=== PATIENT | female | born 1980 | race Caucasian/White ===

== ENCOUNTER 2022-04-21 09:34 | Outpatient (CLI) | payer OTHER, SELFPAY ==
--- NOTE | ~2022-04-21 | MM_ITS ---
EXAMINATION: MM screening renan BI w toby HISTORY: Baseline screening mammogram TECHNIQUE: Craniocaudal and mediolateral oblique 3-D tomosynthesis images were obtained and synthetic 2-D images were generated. CAD analysis was submitted and interpreted. COMPARISON: None, baseline BREAST PARENCHYMAL COMPOSITION: There are scattered areas of fibroglandular density. FINDINGS: RIGHT BREAST: Focal asymmetry is present in the posterior third of the far outer breast. LEFT BREAST: No suspicious mass, calcification, or architectural distortion are identified to suggest malignancy. IMPRESSION: 1. Right breast focal asymmetry. 2. Additional mammographic views and possible breast ultrasound are recommended. BI-RADS Category 0: Incomplete: Needs additional imaging evaluation. Reviewed, dictated and finalized at location A. EOLOGY FACULTY MEMBER IMPRESSION: 1. Right breast focal asymmetry. 2. Additional mammographic views and possible breast ultrasound are recommended . BI-RADS Category 0: Incomplete: Needs additional imaging evaluation.
== END 2022-04-21 09:35 | disposition home or self-care (01) ==
LOC: ANHIMG 09:36
PROVIDERS: PCP Emergency Medicine; Visit Provider Emergency Medicine
DX: Z12.31 Encounter for screening mammogram for malignant neoplasm of breast (principal); R92.8 Other abnormal and inconclusive findings on diagnostic imaging of breast
CPT/HCPCS: 77063; 77067

== ENCOUNTER 2022-05-12 14:00 | Outpatient (CLI) | payer OTHER, SELFPAY ==
--- NOTE | ~2022-05-12 | MMUS_ITS ---
EXAMINATION: MM diagnostic renan RT w toby, US breast RT limited HISTORY: Follow-up right breast asymmetry TECHNIQUE: Additional 3-D tomosynthesis images of the right breast were performed and synthetic 2-D i mages were generated. CAD analysis was submitted and interpreted. High resolution Limited right breas t ultrasound was performed. COMPARISON: 04/21/2022 BREAST PARENCHYMAL COMPOSITION: Breast composed of scattered areas of fibroglandular density FINDINGS: MAMMOGRAPHIC FINDINGS: There is persistent asymmetry in the upper outer quadrant of the right breast with nodular appearance on tomographic images. There are 2 punctate calcifications within the soft tissue. ULTRASOUND: Limited right breast ultrasound: At 10:00, 12 cm from the nipple, there is a cluster of microcysts me asuring 9 x 3 x 6 mm, likely corresponding to the area of mammographic concern. No additional masses are seen. IMPRESSION: 1. Probable benign findings of the right breast. 2. Recommend 6 month follow-up diagnostic right mammogram and ultrasound. BI-RADS category 3, probably benign findings. Reviewed, dictated and finalized at location A. REACH OPERATOR IMPRESSION: 1. Probable benign findings of the right breast. 2. Recommend 6 month follow-up diagnostic right mammogram and ultrasound. BI-RADS category 3, probably benign findings.
== END 2022-05-12 14:01 | disposition home or self-care (01) ==
PROVIDERS: PCP Emergency Medicine; Visit Provider Emergency Medicine
DX: R92.8 Other abnormal and inconclusive findings on diagnostic imaging of breast (principal)
CPT/HCPCS: 76642; 77061; 77065; G0279

== ENCOUNTER 2023-03-29 09:02 | Outpatient (CLI) | payer OTHER, SELFPAY ==
--- NOTE | 2023-03-29 11:00 | NEURO_ITS ---
Impression: # Complains of right 4th and 5th finger numbness. # No Carpal Tunnel Syndrome or ulnar neuropathy at this stage. # Normal needle/EMG exam. # Clinical correlation recommended. Nerve Conduction Studies Anti Sensory Summary Table Stim Site NR Peak (ms) P-T Amp (?V) Site1 Site2 Delta-P (ms) Dist (cm) Sai (m/s) Right Median Anti Sensory (2-3nd Digit) Wrist 3.3 78.5 Wrist 2-3nd Digit 3.3 14.0 42 Wrist 3.2 92.1 Wrist 2-3nd Digit 3.3 14.0 42 Right Radial Anti Sensory (Base 1st Digit) Wrist 2.1 33.8 Wrist Base 1st Digit 2.1 0.0 Right Ulnar Anti Sensory (5th Digit) Wrist 2.6 46.7 Wrist 5th Digit 2.6 14.0 54 Motor Summary Table Stim Site NR Onset (ms) O-P Amp (mV) Site1 Site2 Delta-0 (ms) Dist (cm) Sai (m/s) Right Median Motor (Abd Poll Brev) Wrist 3.5 3.8 Elbow Wrist 4.2 27.0 64 Elbow 7.7 3.2 Right Ulnar Motor (Abd Dig Minimi) Wrist 2.1 8.7 A Elbow Wrist 5.1 31.0 61 A Elbow 7.2 7.2 F Wave Studies NR F-Lat (ms) L-R F-Lat (ms) Right Median (Mrkrs) (Abd Poll Brev) 26.14 Right Ulnar (Mrkrs) (Abd Dig Min) 26.20 EMG Side Muscle Nerve Root Ins Act Fibs Amp Dur Recrt Comment Right 1stDorInt Ulnar C8-T1 Nml Nml Nml Nml Nml Right Ext Indicis Radial (Post Int) C7-8 Nml Nml Nml Nml Nml Right Ext Digitorum Radial (Post Int) C7-8 Nml Nml Nml Nml Nml Right BrachioRad Radial C5-6 Nml Nml Nml Nml Nml Right PronatorTeres Median C6-7 Nml Nml Nml Nml Nml Right Abd Poll Brev Median C8-T1 Nml Nml Nml Nml Nml Right ABD Dig Min Ulnar C8-T1 Nml Nml Nml Nml Nml Right Biceps Musculocut C5-6 Nml Nml Nml Nml Nml Right Triceps Radial C6-7-8 Nml Nml Nml Nml Nml MTDD
== END 2023-03-29 09:03 | disposition home or self-care (01) ==
PROVIDERS: PCP Emergency Medicine; Visit Provider Emergency Medicine
DX: G56.21 Lesion of ulnar nerve, right upper limb (principal)
CPT/HCPCS: 95886; 95909

== ENCOUNTER 2023-07-26 13:45 | Outpatient (CLI) | payer OTHER, SELFPAY ==
--- NOTE | ~2023-07-26 | MM_ITS ---
EXAMINATION: MM screening renan BI w toby HISTORY: Screening mammogram TECHNIQUE: Craniocaudal and mediolateral oblique 3-D tomosynthesis images were obtained and synthetic 2-D images were generated. CAD analysis was submitted and interpreted. COMPARISON: 05/12/2022 diagnostic right mammogram and limited right breast ultrasound 04/21/2022 bilateral screening mammogram BREAST PARENCHYMAL COMPOSITION: There are scattered areas of fibroglandular density. FINDINGS: Focal irregular asymmetric opacity is noted in the very posterior upper outer right breast, appearing mildly increased in prominence since 04/21/2022. Diagnostic right mammogram and right breas t ultrasound examination are recommended. Otherwise no suspicious mass, architectural distortion, malignant calcification, skin thickening or r etraction of either breast or other significant new or developing density is noted. IMPRESSION: 1. Focal irregular asymmetry in posterior upper outer right breast 2. Diagnostic right mammogram and right breast ultrasound examination are recommended BI-RADS Category 0: Incomplete: Needs additional imaging evaluation. Reviewed, dictated and finalized at location A. L RESTORER IMPRESSION: 1. Focal irregular asymmetry in posterior upper outer right breast 2. Diagnostic right mammogram and right breast ultrasound examination are recom mended BI-RADS Category 0: Incomplete: Needs additional imaging evaluation.
== END 2023-07-26 13:46 | disposition home or self-care (01) ==
LOC: ANHIMG 13:47
PROVIDERS: PCP Emergency Medicine; Visit Provider Emergency Medicine
DX: Z12.31 Encounter for screening mammogram for malignant neoplasm of breast (principal); R92.8 Other abnormal and inconclusive findings on diagnostic imaging of breast
CPT/HCPCS: 77063; 77067

== ENCOUNTER 2023-08-22 13:30 | Outpatient (CLI) | payer OTHER, SELFPAY ==
--- NOTE | ~2023-08-22 | MMUS_ITS ---
EXAMINATION: MM diagnostic renan RT w toby, US breast RT limited HISTORY: Follow-up right breast asymmetry TECHNIQUE: Additional 3-D tomosynthesis images of the right breast were performed and synthetic 2-D i mages were generated. CAD analysis was submitted and interpreted. High resolution Limited right breas t ultrasound was performed. COMPARISON: Comparison to multiple prior studies sequentially, with oldest reviewed study dated 05/2021. BREAST PARENCHYMAL COMPOSITION: Not dense: There are scattered areas of fibroglandular density. FINDINGS: MAMMOGRAPHIC FINDINGS: Focal asymmetry is stable compared with prior examination. No new masses, calcifications or lead enterprise architect ural distortion in the right breast to suggest malignancy. ULTRASOUND: At 10:00, 11 cm from the nipple in the right breast is a cluster of cysts, likely corresponding to th e area of mammographic asymmetry. No suspicious masses to suggest malignancy. There are also cysts at 9:00, 7 cm from the nipple. IMPRESSION: 1. No evidence for malignancy in the right breast. Benign findings. 2. Routine yearly screening mammogram and regular clinical breast examination are recommended. BI-RADS Category 2: Benign finding(s). Reviewed, dictated and finalized at location A. IMPRESSION: 1. No evidence for malignancy in the right breast. Benign findings. 2. Routine yearly screening mammogram and regular clinical breast examination a re recommended. BI-RADS Category 2: Benign finding(s).
== END 2023-08-22 13:31 | disposition home or self-care (01) ==
PROVIDERS: PCP Emergency Medicine; Visit Provider Emergency Medicine
DX: R92.8 Other abnormal and inconclusive findings on diagnostic imaging of breast (principal)
CPT/HCPCS: 76642; 77061; 77065; G0279

== ENCOUNTER 2024-10-08 07:56 | Outpatient (CLI) | payer OTHER, SELFPAY ==
--- NOTE | ~2024-10-08 | MM_ITS ---
EXAMINATION: MM screening renan BI w toby HISTORY: Screening TECHNIQUE: Craniocaudal and mediolateral oblique 3-D tomosynthesis images were obtained and synthetic 2-D images were generated. CAD analysis was submitted and interpreted. COMPARISON: Comparison to multiple prior studies sequentially, with oldest reviewed study dated 05/2021. BREAST PARENCHYMAL COMPOSITION: Not dense: There are scattered areas of fibroglandular density. FINDINGS: There is no evidence of suspicious mass, calcification, or architectural distortion to sugg est malignancy in either breast. There has been no suspicious interval change. IMPRESSION: 1. No mammographic evidence of malignancy. 2. Recommend routine screening mammography in one year. BI-RADS Category 1: Negative Reviewed, dictated and finalized at location B.
--- OUTSIDE RECORDS SUMMARY | 2024-10-08 08:02 | XMS_ITS | Referral Summary ---
Author Organization [facility] Address [address] [place] [address] Care Team Providers Care Patients Transporter Name Role Phone Augustine Stewart MD Primary Care Provider [phone] Allergies No known active allergies Medications eletriptan (RELPAX) 40 mg tablet Take 1 tablet (40 mg total) by mouth 2 (two) times a day as needed 02/03/20 22 Active ketoconazole (NIZORAL) 2 % cream Apply topically daily Active levonorgestreL (MIRENA) IUD 1 Intra Uterine Device by intrauterine route once Active levothyroxine (SYNTHROID) 100 mcg tablet Take 1 tablet (100 mcg total) by mouth daily 02/03/20 22 Active ondansetron ODT (ZOFRAN-ODT) 4 mg disintegrating tablet 10/05/19 23 Active phentermine (ADIPEX-P) 37.5 mg tablet 12/29/19 23 Active rimegepant (NURTEC ODT) tablet,disintegrat ing Take 1 tablet (75 mg total) by mouth as needed 05/19/20 21 Active Aimovig Autoinjector 70 mg/mL auto-injector subcutaneous injection Inject 1 mL (70 mg total) under the skin once Active meloxicam (MOBIC) 7.5 mg tabletIndications: Acute left ankle pain Take 1 tablet (7.5 mg total) by mouth daily for 14 days 14 tablet 03/18/20 24 Active Active Problems Problem Noted Date Diagnosed Date Chronic migraine without aura 09/13/2022 Migraine without aura and wi thout status migrainosus, not intractable 09/13/2022 Social History Tobacco Use Types Packs/Day Years Used Date Smoking Tobacco: Former Cigarettes Personal Safety Answer Date Recorded Getting School Help Needed Not on file 06/21 Comments Unknown Sex and Gender Information Value Date Recorded Sex Assigned at Not on file 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 Gender Identity Not on file Sexual Orientation Not on file Last Filed Vital Signs Vital Sign Reading Time Taken Comments Blood Pressure 125/85 03/18/2024 2:06 PM CDT Pulse 69 03/18/2024 2:06 PM CDT Temperature 36.3 C (97.4 F) 03/18/2024 2:06 PM CDT Respiratory Rate 18 03/18/2024 2:06 PM CDT Oxygen Saturation 97% 03/18/2024 2:06 PM CDT Inhaled Oxygen Concentration - - Weight 96.9 kg (213 lb 11.2 oz) 03/18/2024 2:06 PM CDT Height 170.2 cm (5' 7.01 ) 03/18/2024 2:06 PM CD T Body Mass Index 33.46 03/18/2024 2:06 PM CDT Plan of Treatment Not on file Insurance CHOICE PLUS [facility] H[facility]/PPO Address: [id number] [place] [address] [facility] CHOICE PLUS [facility] HMO/PPO [place]: [place] [address] Care Teams Patients Transporter Relationship Specialty Start Date End Date Augustine Stewart MD [address] [place] [address] [address] PCP - General Family Medicine 04/05/23
--- OUTSIDE RECORDS SUMMARY | 2024-10-08 08:02 | XMS_ITS | Encounter Summary ---
Author Organization [facility] Address [address] [place] [address] Care Team Providers Care Skin Lap Bonder Name Role Phone Augustine Stewart MD Primary Care Provider [phone] Radha Elliott NP Primary Care Provider [phone] Encounter Details Date Type Department Care Team (Late Contact Info) Description 01/12/2024 Therapy Plan [address], [address] [place] [address] Chris Church MD [address] [place] [id number] Social History Tobacco Use Types Packs/Day Years Used Date Smoking Tobacco: Former Cigarettes Q uit: 2010 Smokeless Tobacco: Never Alcohol Use Standard Drinks/Week Comments Not Currently 0 (1 standard drink = 0.6 oz pur e alcohol) PHQ-2 Answer Date Recorded Patient Health Questionnaire-2 Score 0 04/24/2023 Comments Unknown Sex and Gender Information Value Date Recorded Sex Assigned at Not on file Legal Sex Female 3:33 PM CDT Gender Identity Not on file Sexual Orientation Not on file documented as of this encounter Plan of Treatment Upcoming Encounters Date Type Department Care Team (Late Contact Info) Description 01/13/2025 10:00 AM CDT Office Visit [address], [address] [place] [address] Chris Church MD [address] [place] [address] documented as of this encounter Visit Diagnoses Not on filedocumented in this encounter Care Teams Skin Lap Bonder Relationship Specialty Start Date End Date Augustine Stewart MD [address] [place] [address] PCP - General EMERGENCY MEDICINE 01/01/24 08/11/24 Radha Elliott NP [address] [place] [address] PCP - General 08/12/24 documented as of this encounter
--- OUTSIDE RECORDS SUMMARY | 2024-10-08 08:02 | XMS_ITS | Clinical Summary ---
Author Organization [facility] Address [address] [place] [address] Care Team Providers Care Log Loader Helper Name Role Phone Augustine Stewart MD Primary Care Provider [phone] Allergies No known active allergies Medications eletriptan [...] wi thout status migrainosus, not intractable 09/13/2022 Surgical History Surgery Date Site/Laterality Comments LASIK SECTION THYROIDECTOMY, PARTIAL Medical History Medical History Date Comments Thyroid disease Migraines Family History Medical History Relation Name Comments Kidney disease Brother Mental illness Brother Arthritis Mother Cancer Mother Hypertension Mother Mental illness Mother Scoliosis Mother Relation Name Status Comments Brother Mother Social History Tobacco Use Types Packs/Day Years Used Date Smoking Tobacco: Former Cigarettes Personal Safety Answer Date Recorded Getting School Help Needed Not on file 06/21 Comments Unknown Sex and Gender Information Value Date Recorded Sex Assigned at Not on file 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 Gender Identity Not on file Sexual Orientation Not on file Obstetrics History Last Filed Vital Signs Vital Sign Reading [...] 03/18/2024 2:06 PM CDT Plan of Treatment Health Maintenance Due Date Last Done Comments Breast Cancer Screening-Mammogram 1980 Cervical Cancer Screening 1980 Depression Screening 1980 Hepatitis C Screening 1980 DTaP/Tdap/Td Vaccine (1 - Tdap) 07/31/1991 Varicella Vaccines (1 of 2 - 13+ 2-dose series) 1993 Hepatitis B Screening 1998 Regular Well Visit/Exam 18-64 1998 Covid-19 Vaccine (2 - 2023-2 5 season) 2024 07/23/2022 Influenza Vaccine Completed 04/30/2024, 07/23/2022 HPV Vaccines Aged Out No longer eligi ble based on patient's age to complete this topic Pneumococcal vaccine <65 Aged Out No longer eligible based on patient's age to complete this topic Insurance [facility] [employer] Care Teams Log Loader Helper Relationship Specialty Start Date End Date Augustine Stewart MD [facility] [facility] [place] [address] PCP - General Family Medicine 04/05/23
--- OUTSIDE RECORDS SUMMARY | 2024-10-08 08:02 | XMS_ITS | Clinical Summary ---
Author Organization [facility] Address [address] [place] [address] Care Team Providers Care Licensed Clinical Psychologist Name Role Phone Radha Elliott NP Primary Care Provider [phone] Allergies Active Allergy Reactions Criticality Noted Date Comments Seasonal Runny Nose 02/08/2022 Medications levothyroxine (SYNTHROID) 100 MCG tablet Take 1 tablet (100 mcg total) by mouth daily. 022 Active levonorgestrel (MIRENA) 20 MCG/DAY IUD 1 Intra Uterine Device by Intrauterine route once. Active eletriptan (RELPAX) 40 MG tabletIndications :Migraine without aura, not intractable, without status migrainosus Take 1 tablet (40 mg total) by mouth 2 (two) times daily as needed. may repeat in 2 hours if necessary 16 tablet 11 023 Active rimegepant (NURTEC) 75 MG disintegrating tabletIndications :Migraine without aura, not intractable, without status migrainosus Take 1 tablet (75 mg total) by mouth daily as needed for Migraine. Max of 1 tablet (75 mg) in 24 hours. 16 tablet 11 025 Active eletriptan (RELPAX) 40 MG tabletIndications :Migraine without aura, not intractable, without status migrainosus Take 1 tablet (40 mg total) by mouth as needed. may repeat in 2 hours if necessary 8 tablet 11 025 Active erenumab-aooe (AIMOVIG) 70 mg/mL injection (autoinjector)Ind ications:Chronic migraine w/o aura w/o status migrainosus, not intractable INJECT 1 ML (70 MG TOTAL) INTO THE SKIN EVERY 30 DAYS 1 Pen 5 025 Active erenumab-aooe (AIMOVIG) 70 mg/mL injection (autoinjector)Ind ications:Chronic migraine w/o aura w/o status migrainosus, not intractable Inject 1 mL (70 mg total) into the skin every 30 (thirty) days. 1 pen. 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 Encounters Date Type Department Care Team Description 08/19/2024 Telephone [facility] - [address], [address] [place] [phone] Chris Church MD Results 08/15/2024 10:31 AM CDT - 08/15/2024 11:59 PM CDT Hospital Encounter [facility] [address] [place] [address] Chris Church MD Discharge Disposition: Home or Self Care (Routine Discharge) 08/15/2024 Travel 08/13/2024 7:40 AM CDT Office Visit [facility] - [address], [address] [place] [address] Chris Church MD Follow Up (Migraine days down to 1 or 2 a month) 08/13/2024 Travel 08/01/[address], [address] [place] [address] Chris Church MD Medication Request from Last 3 Months Family History Medical History Relation Comments Alcohol Abuse Maternal Grandfather Stroke Maternal Grandmother Vision loss Maternal Grandmother Arthritis Mother Cancer Mother Ovarian Depression Mother Hyperlipidemia Mother Hypertension Mother Diabetes Paternal Aunt 1 Hyperlipidemia Paternal Aunt 2 Diabetes Paternal Uncle Relation Status Comments Maternal Grandfather Maternal Grandmother Mother Paternal Aunt 1 Paternal Aunt 2 Paternal Uncle Social History Tobacco Use Types Packs/Day Years Used Date Smoking Tobacco: Former Cigarettes Q uit: 2010 Smokeless Tobacco: Never Tobacco Cessation:Counseling Given: No Alcohol Use Standard Drinks/Week Comments Not Currently 0 (1 standard drink = 0.6 oz pur e alcohol) PHQ-2 Answer Date Recorded Patient Health Questionnaire-2 Score 0 08/13/2024 Comments Unknown Sex and Gender Information Value Date Recorded Sex Assigned at Not on file Legal Sex Female 3:33 PM CDT Gender Identity Not on file Sexual Orientation Not on file Last Filed Vital Signs Vital Sign Reading Time Taken Comments Blood Pressure 129/80 08/13/2024 7:54 AM CDT Pulse 74 08/13/2024 7:54 AM CDT Temperature 36.3 C (97.4 F) 08/13/2024 7:54 AM CDT Respiratory Rate 16 08/13/2024 7:54 AM CDT Oxygen Saturation 79% 08/13/2024 7:54 AM CDT Inhaled Oxygen Concentration - - Weight 104.3 kg (230 lb) 08/13/2024 7:54 AM CDT Height 170.2 cm (5' 7 ) 08/13/2024 7:54 AM CDT Body Mass Index 36.02 08/13/2024 7:54 AM CDT Plan of Treatment Upcoming Encounters Date Type Department Care Team (Late st Contact Info) Description 01/13/2025 10:00 AM CDT Office Visit [facility] [address] [facility], [address] [place] [id number] Chris Church MD [address] [place] [address] Health Maintenance Due Date Last Done Comments Cervical Cancer Screening Pa p Smear (Age 30 to 64) Every 3 Years 1980 Annual Physical 07/31/1983 Hepatitis C 1998 Hepatitis B Vaccines (1 of 3 - 19+ 3-dose series) 07/31/1999 Cervical Cancer Screening Pa p with HPV Testing (Age 30 to 64) Every 5 Years 2010 Cervical Cancer Screening wi th HPV 2010 Mammogram Screening 2020 COVID-19 Vaccine (4 - 2023-2 5 season) 2024 07/23/2022, 09/11/2020, 08/21/2020 DTaP, Tdap and Td Vaccines ( 2 - Td or Tdap) 09/23/2026 09/23/2016 PHQ-2 (Physician [place]) Completed 08/13/2024 HPV Vaccines Aged Out No longer eligi ble based on patient's age to complete this topic Meningococcal B Vaccine Aged Out No l onger eligible based on patient's age to complete this topic Meningococcal Vaccine Aged Out No mychal dudley eligible based on patient's age to complete this topic Pneumococcal Vaccine: Pediatrics (0 to 5 Years) and At-Risk Patients (6 to 49 Years) Aged Out No longer eligible b ased on patient's age to complete this topic RSV Immunizations Under 20 Months Aged Out No longer eligible b ased on patient's age to complete this topic Procedures Procedure Name Priority Date/Time Associated Diagnosis Comments MRI BRAIN O CON Routine 08/15/2024 11: 17 AM CDT Meningioma ([facility]) from Last 3 Months Results * MRI BRAIN WWO CON (08/15/2024 11:17 AM CDT) Anatomical Region Laterality Modality Head Magnetic Resonan ce 08/15/2024 5:44 PM CDT Impressions 08/15/2024 7:15 PM CDT IMPRESSION: 1. Normal appearance of the brain. 2. Redemonstrated right parafalcine calcification, less likely a meningioma, unchanged when compared with the prior MRI from 03/31/2023. Referred By: CHRIS CHURCH Interpreted By: Farhat Rebolledo MD, 08/15/2024 5:44 PM Narrative 08/15/2024 7:15 PM CDT [address] [address] EXAMINATION: MRI BRAIN [facility], 08/15/2024 5:44 PM TECHNIQUE: Multiplanar multisequence magnetic resonance images of the brain were obtained before and after the administration of 20 mL of MultiHance injected through the IV, without evidence of adverse reaction. HISTORY: Chronic headaches, past medical history of meningioma. COMPARISON: MRI brain 03/31/2023 FINDINGS: There is no restricted diffusion to suggest an acute infarction. There is no hemorrhagic focus of susceptibility. There is a focal area of susceptibility along the right parafalcine region without corresponding enhancement that may represent a dural calcification rather than a meningioma. No abnormally enhancing intracranial parenchymal. The sella, callosal, pineal, and craniovertebral junction regions appear within normal limits. There is no extra-axial collection. The ventricles are normal in size. The basal cisterns appear normal. The proximal intracranial arterial flow voids have a normal appearance. Orbital contents appear normal. Paranasal sinuses and mastoid air cells are well-aerated. Procedure Note Farhat Rebolledo MD - 08/15/[address] [address] EXAMINATION: MRI BRAIN [facility], 08/15/2024 5:44 PM TECHNIQUE: Multiplanar multisequence magnetic resonance images of thebrain were obtained before and after the administration of 20 mL ofMultiHance injected through the IV, without evidence of adversereaction. HISTORY: Chronic headaches, past medical history of meningioma. COMPARISON: MRI brain 03/31/2023 FINDINGS: There is no restricted diffusion to suggest an acute infarction.There is no hemorrhagic focus of susceptibility. There is a focal areaof susceptibility along the right parafalcine region without correspondingenhancement that may represent a dural calcification rather than ameningioma. No abnormally enhancing intracranial parenchymal. The sella,callosal, pineal, and craniovertebral junction regions appear withinnormal limits. There is no extra-axial collection. The ventricles are normal in size.The basal cisterns appear normal. The proximal intracranial arterial flowvoids have a normal appearance. Orbital contents appear normal.Paranasal sinuses and mastoid air cells are well-aerated. IMPRESSION: 1. Normal appearance of the brain. 2. Redemonstrated right parafalcine calcification, less likely ameningioma, unchanged when compared with the prior MRI from 03/31/2023. Referred By: CHRIS CHURCH Interpreted By: Farhat Rebolledo MD, 08/15/2024 5:44 PM us Chris Church MD MRI Final Res ult from Last 3 Months Insurance [place] [address] Care Teams Licensed Clinical Psychologist Relationship Specialty Start Date End Date Radha Elliott NP [address] [place] [address] PCP - General 08/12/24
--- OUTSIDE RECORDS SUMMARY | 2024-10-08 08:02 | XMS_ITS | Encounter Summary ---
Author Organization [facility] Address [address] [place] [address] Care Team Providers Care Cart Pusher Name Role Phone Chris Church MD Primary Care Provider [phone] Augustine Stewart MD Primary Care Provider [phone] Radha Elliott NP Primary Care Provider [phone] Encounter Details Date Type Department Care Team (Latest Contact Info) Description 12/01/2022 MyChart Message Enc [address], [address] [place] [phone] Chris Church MD [address] [place] [address] [facility] Preauthorization info Social History Tobacco Use Types Packs/Day Years Used Date Smoking Tobacco: Former Cigarettes Smokeless Tobacco: Never PHQ-2 Answer Date Recorded Patient Health Questionnaire-2 Score 0 10/05/2022 Comments Unknown Sex and Gender Information Value Date Recorded Sex Assigned at Not on file Legal Sex Female 3:33 PM CDT Gender Identity Not on file Sexual Orientation Not on file documented as of this encounter Plan of Treatment Upcoming Encounters Date Type Department Care Team (Late st Contact Info) Description 01/13/2025 10:00 AM CDT Office Visit [address], [address] [place] [address] Chris Church MD [address] [place] [address] documented as of this encounter Visit Diagnoses Not on filedocumented in this encounter Care Teams Cart Pusher Relationship Specialty Start Date End Date Chris Church MD [address] [place] [address] PCP - General NEUROMUSCULOSKELETAL MEDICINE 02/08/22 12/31/23 Augustine Stewart MD [address] [place] [address] PCP - General EMERGENCY MEDICINE 01/01/24 08/11/24 Radha Elliott NP [address] [place] [address] PCP - General 08/12/24 documented as of this encounter
== END 2024-10-08 07:57 | disposition home or self-care (01) ==
LOC: ANHIMG 07:57
PROVIDERS: PCP Family Medicine; Visit Provider Nurse Practitioner
DX: Z12.31 Encounter for screening mammogram for malignant neoplasm of breast (principal)
CPT/HCPCS: 77063; 77067

== ENCOUNTER 2024-12-26 03:11 | Day surgery (SDC) | payer OTHER, SELFPAY ==
[2024-12-11 11:24] VITALS: BMI 34.4
--- OUTSIDE RECORDS SUMMARY | 2024-12-26 03:13 | XMS_ITS | Clinical Summary ---
Author Organization [facility] Address [address] [place] [address] Care Team Providers Care Airplane Rigger Name Role Phone Radha Elliott NP Primary Care Provider [phone] Allergies Active Allergy Reactions Criticality Noted Date Comments Seasonal Runny Nose 02/08/2022 Medications levothyroxine (SYNTHROID) 100 MCG tablet Take 1 tablet (100 mcg total) by mouth daily. 02/03/20 22 Active levonorgestrel (MIRENA) 20 MCG/DAY IUD 1 Intra Uterine Device by Intrauterine route once. Active eletriptan (RELPAX) 40 MG tabletIndications: Migraine without aura, not intractable, without status migrainosus Take 1 tablet (40 mg total) by mouth 2 (two) times daily as needed. may repeat in 2 hours if necessary 16 tablet 11 04/24/20 23 Active rimegepant (NURTEC) 75 MG disintegrating tabletIndications: Migraine without aura, not intractable, without status migrainosus Take 1 tablet (75 mg total) by mouth daily as needed for Migraine. Max of 1 tablet (75 mg) in 24 hours. 16 tablet 11 08/03/19 25 Active eletriptan (RELPAX) 40 MG tabletIndications: Migraine without aura, not intractable, without status migrainosus Take 1 tablet (40 mg total) by mouth as needed. may repeat in 2 hours if necessary 8 tablet 11 08/14/19 25 Active erenumab-aooe (AIMOVIG) 70 mg/mL injection (autoinjector)Silvia cations:Chronic migraine w/o aura w/o status migrainosus, not intractable INJECT 1 ML (70 MG TOTAL) INTO THE SKIN EVERY 30 DAYS 1 Pen 5 09/28/19 Active Active Problems Problem Noted Date Diagnosed Date Migraine without aura and wi thout status migrainosus, not intractable 09/13/2022 Chronic migraine without aura 09/13/2022 Mixed hyperlipidemia 04/07/2019 Migraine aura occurring with and without headach e 05/22/2005 Visual snow syndrome 05/22/1998 Family History Medical History Relation Comments Alcohol [...] 7:54 AM CDT Height 170.2 cm (5' 7) 08/13/2024 7:54 AM CDT Body Mass Index 36.02 08/13/2024 7:54 AM CDT Plan of Treatment Upcoming Encounters Date Type Department Care Team (Late st Contact Info) Description 04/29/2025 3:00 PM SPORTS APPAREL INTERNSHIP Office Visit [facility] - [address], [address] [place] [address] Chris Church MD [address] [place] [address] Health Maintenance Due Date Last Done Comments Cervical Cancer Screening Pa p Smear (Age 30 to 64) Every 3 Years 1980 Annual Physical 07/31/1983 Hepatitis C 1998 Hepatitis B Vaccines (1 of 3 - 19+ 3-dose series) 07/31/1999 HPV Vaccines (1 - 3-dose SCD M series) 07/31/2007 Cervical Cancer Screening Pa p with HPV Testing (Age 30 to 64) Every 5 Years 2010 Cervical Cancer Screening wi th HPV 2010 Mammogram Screening 2020 COVID-19 Vaccine (4 - 2023-2 5 season) 2024 07/23/2022, 09/11/2020, 08/21/2020 DTaP, Tdap and Td Vaccines ( 2 - Td or Tdap) 09/23/2026 09/23/2016 PHQ-2 (Physician [place]) Completed 08/13/2024 Meningococcal B Vaccine Aged Out No l [...] patient's age to complete this topic Insurance [facility] Care Teams Airplane Rigger Relationship Specialty Start Date End Date Radha Elliott NP [address] [place] [address] PCP - General 08/12/24
--- OUTSIDE RECORDS SUMMARY | 2024-12-26 03:13 | XMS_ITS | Encounter Summary ---
Author Organization [facility] Address [address] [place] [address] Care Team Providers Care Employment Interviewer Name Role Phone Augustine Stewart MD Primary Care Provider [phone] Radha Elliott NP Primary Care Provider [phone] Encounter Details Date Type Department Care Team (Late Contact Info) Description 01/12/2024 Therapy Plan [address], [address] [place] [address] Chris Church MD [address] [place] [address] Social History Tobacco Use Types Packs/Day Years [...] Department Care Team (Late Contact Info) Description 04/29/2025 3: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
--- OUTSIDE RECORDS SUMMARY | 2024-12-26 03:13 | XMS_ITS | Encounter Summary ---
Author Organization [facility] Address [address] [place] [address] Care Team Providers Care Digital Account Coordinator Name Role Phone Chris Church MD Primary Care Provider [phone] Augustine Stewart MD Primary Care Provider [phone] Radha Elliott NP Primary Care Provider [phone] Encounter Details Date Type Department Care Team (Latest Contact Info) Description 12/01/2022 MyChart Message Enc [facility] - [address], [address] [place] [phone] Chris Church MD [address] [place] [address] [facility] Preauthorization info Social History Tobacco Use Types [...] st Contact Info) Description 04/29/2025 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 [address], [address] [place] [address] Chris Church MD [address] [place] [address] documented as of this encounter Visit Diagnoses Not on filedocumented in this encounter Care Teams Digital Account Coordinator Relationship Specialty Start Date End Date Chris Church MD [address] [place] [address] PCP - General NEUROMUSCULOSKELETAL MEDICINE 02/08/22 12/31/23 Augustine Stewart MD [address] [place] [address] PCP - General EMERGENCY MEDICINE 01/01/24 08/11/24 Radha Elliott NP [address] [place] [address] PCP - General 08/12/24 documented as of this encounter
--- OUTSIDE RECORDS SUMMARY | 2024-12-26 03:13 | XMS_ITS | Clinical Summary ---
Author Organization [facility] Address [address] [place] [address] Care Team Providers Care Marine Structural Designer Name Role Phone Augustine Stewart MD Primary Care Provider [phone] Allergies No known active allergies Medications eletriptan [...] on file Legal Sex Female 2:38 PM VP HOME HEALTH Gender Identity Not on file Sexual Orientation [...] 2:06 PM CDT Height 170.2 cm (5' 7.01) 03/18/2024 2:06 PM CD T Body Mass Index 33.46 03/18/2024 2:06 PM CDT Plan of Treatment Health Maintenance Due Date Last Done Comments Breast Cancer Screening-Mammogram 1980 Cervical Cancer Screening 1980 Depression Screening 1980 Hepatitis C Screening 1980 DTaP/Tdap/Td Vaccine (1 - Tdap) 07/31/1991 Varicella Vaccines (1 of 2 - 13+ 2-dose series) 1993 Hepatitis B Screening 1998 Regular Well Visit/Exam 18-64 1998 HPV Vaccines (1 - 3-dose SCD M series) 07/31/2007 Covid-19 Vaccine (2 - 2023-2 5 season) 2024 07/23/2022 Influenza Vaccine (#1) 2025 , 07/23/2022 Pneumococcal vaccine <65 Aged Out No longer eligible based on patient's age to complete this topic Insurance [facility] PL[facility] Care Teams Marine Structural Designer Relationship Specialty Start Date End Date Augustine Stewart MD [address] [place] [address] [place] [address] PCP - General Family Medicine 04/05/23
[2024-12-26 10:18] VITALS: BP 125/74; PULSE 66; RESP 18; TEMP 36.4; O2SAT 99
--- NOTE | 2024-12-26 10:23 | P.PNAN_ITS ---
Anes - Initial Pre Proc Eval Procedure: Operation Date: 12/26/24 11:00 Proposed Procedures p Screening Colonoscopy - Jose Alejandro Del Valle MD Date/Time: 12/26/24 10:23 Surgeon: Jose Alejandro Del Valle MD Pre Op Diagnosis: Screening Patient Data Age: 44 Gender: F Height: 1.7 m Weight: 101.3 kg Last Vital Signs Temp 36.4 C 12/26/24 10:18 Pulse 66 12/26/24 10:18 Resp 18 12/26/24 10:18 BP 125/74 12/26/24 10:18 Pulse Ox 99 12/26/24 10:18 O2 Del Method Room Air 12/26/24 10:18 Allergies Allergy/AdvReac Type Severity Reaction Status Date / Time No Known Allergies Allergy Verified 12/26/24 10:15 Home Medications ?Medication ?Instructions ?Recorded ?Confirmed ?Type levonorgestrel (Mirena) 1 device intrauterine ONCE 02/11/22 12/11/24 History rimegepant 75 mg disintegrating 75 mg PO ONCE PRN migraine headache 02/11/22 12/11/24 History tablet (Nurtec ODT) erenumab-aooe 70 mg/mL 70 mg subcut MONTHLY 04/29/24 12/26/24 History subcutaneous auto-injector (Aimovig Autoinjector) eletriptan 40 mg tablet 40 mg PO ONCE 09/10/24 12/26/24 History levothyroxine 100 mcg tablet 100 mcg PO DAILY 09/10/24 12/26/24 History multivitamin 1 tablet PO DAILY 09/10/24 12/26/24 History Patient hx anesthesia problems: none Family hx anesthesia problems: none Results Review: All pre-operative results and documents have been reviewed as part of the pre- operative evaluation. [facility] Family History Family History Mother Family history of ovarian cancer Family history of thyroid disorder Other No problems noted. Other Alcoholism in family Family history of depression Family history of diabetes mellitus Family history of hypertension Family history of stroke Social History Social History Smoking packs per day: 1 Smoking cigarettes per day: 20.0 Years smoked: 10 Smoking pack-years: 10.00 Smoking status: Former smoker Tobacco type: cigarettes Smoking end date: 05/22/09 Alcohol intake: never Alcohol use details: RARELY Substance use: never Substance use type: does not use Lack of Transportation: No Lack of Food: Never True Current Housing: I Have Housing Concerned About Future Housing: No Difficulty Paying Gas/Electric Bills: No Difficulty Paying for Meds: No Currently Unemployed: No Education: Master's Degree or Higher Difficulty w/ Childcare or Family Care: No Living arrangements: alone Occupation/Education: occupation Additional occupation/education comments: [employer] Gender identity (if verbalized by the patient): Female Spiritual care concerns: No Agree to blood products: Yes Anes - Eval Final PreProcedure Day of Procedure 12/26/24 10:23 Patient weight: obese Heart: regular rate and rhythm Lungs: clear to auscultation Airway: Mallampati scale class II Neurological: alert and oriented Last oral intake: >/= 8 hours ASA classification: III Emergent: no Anesthetic plan: proceed Anesthesia type and monitoring: general GIVS and standard monitoring Results Review: All pre-operative results and documents have been reviewed as part of the pre- operative evaluation. Informed Consent: The patient's anesthetic plan and its attendant risks and benefits were discussed with the patient/family/POA. Questions were solicited and answers provided to the satisfaction of the patient/family/POA.
[2024-12-26 10:24] LABS: BEDSIDEPREGUCG Negative (Negative)
[2024-12-26] MEDS: LACTATED RINGERS 1,000 ML 150 ML IV CONT (10:26)
--- NOTE | 2024-12-26 11:03 | P.HP_ITS ---
H&P: HPI History of Present Illness Date/Time: 12/26/24 11:03 Chief Complaint: Family history of colon polyps Narrative: This patient has family history of colorectal polyps in her mother. She never had a colonoscopy. Review of Systems Review of Systems: All systems reviewed & are unremarkable except as noted in HPI and below PMFSH Family History Family History Mother Family history of ovarian cancer Family history of thyroid disorder Other No problems noted. Other Alcoholism in family Family history of depression Family history of diabetes mellitus Family history of hypertension Family history of stroke Social History Social History Smoking packs per day: 1 Smoking cigarettes per day: 20.0 Years smoked: 10 Smoking pack-years: 10.00 Smoking status: Former smoker Tobacco type: cigarettes Smoking end date: 05/22/09 Alcohol intake: never Alcohol use details: RARELY Substance use: never Substance use type: does not use Lack of Transportation: No Lack of Food: Never True Current Housing: I Have Housing Concerned About Future Housing: No Difficulty Paying Gas/Electric Bills: No Difficulty Paying for Meds: No Currently Unemployed: No Education: Master's Degree or Higher Difficulty w/ Childcare or Family Care: No Living arrangements: alone Occupation/Education: occupation 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 Gender identity (if verbalized by the patient): Female Spiritual care concerns: No Agree to blood products: Yes Meds Home Medications and Allergies Home Medications ?Medication ?Instructions ?Recorded ?Confirmed ?Type levonorgestrel (Mirena) 1 device intrauterine ONCE 02/11/22 12/11/24 History rimegepant 75 mg disintegrating 75 mg PO ONCE PRN migraine headache 02/11/22 12/11/24 History tablet (Nurtec ODT) erenumab-aooe 70 mg/mL 70 mg subcut MONTHLY 04/29/24 12/26/24 History subcutaneous auto-injector (Aimovig Autoinjector) eletriptan 40 mg tablet 40 mg PO ONCE 09/10/24 12/26/24 History levothyroxine 100 mcg tablet 100 mcg PO DAILY 09/10/24 12/26/24 History multivitamin 1 tablet PO DAILY 09/10/24 12/26/24 History Allergies Allergy/AdvReac Type Severity Reaction Status Date / Time No Known Allergies Allergy Verified 12/26/24 10:15 Vital Signs Vital Signs - 24 hr 12/26/24 10:18 Temperature 97.6 F Pulse Rate 66 Respiratory Rate 18 Blood Pressure 125/74 Pulse Oximetry 99 Oxygen Delivery Room Air Exam Const: General: cooperative and healthy appearing Resp: Effort & Inspection: normal respiratory effort and able to speak in c omplete sentences Auscultation: clear to auscultation bilaterally Cardio: Rate: regular rate Rhythm: regular rhythm GI: Inspection: normal to inspection GI Palp: No No hepatosplenomegaly present Auscultation: normal bowel sounds Rectal Exam: deferred Skin: General skin exam: normal color Psych: Appearance: grossly normal Mental Status: mental status grossly normal Assessment and Plan Assessment and plan (1) Screening for colon cancer: Code(s): Z12.11 - Encounter for screening for malignant neoplasm of colon Status: Acute Assessment and Plan: The patient is deemed a good candidate for the procedure. Consent signed. Wi ll proceed.
--- NOTE | 2024-12-26 11:25 | S_PTH ---
PATIENT: Andreia Fontenot LOC: [facility]#:[id number] AGE/SX: 44/F ROOM: RE12/26/[address]: Jose Alejandro Del Valle MD : 1980 BED: DIS: 12/26/2024 SPEC #: [id number] RECD: 12/26/24 12:09 STATUS: MAG REQ #: [id number] KATHLEEN: 12/26/24 11:[address]: Jose Alejandro Del Valle DEPT: [facility] Surgical RECD BY: Desiree Alcala ENTERED: 12/26/24 12:09 SP TYPE: Surgical OTHR DR: Elizabeth Paniagua DO Tissues: A - Colon Polypectomy Procedures: Hematoxylin and Eosin Stain Gross and Microscopic Level 4
[2024-12-26 11:27] VITALS: BP 106/61; PULSE 67; RESP 16; O2SAT 100
[2024-12-26 11:37] VITALS: BP 114/71; PULSE 75; RESP 16; O2SAT 100
[2024-12-26 11:47] VITALS: BP 117/74; PULSE 68; RESP 18; O2SAT 100
== END 2024-12-26 11:57 | disposition home or self-care (01) ==
PROVIDERS: Anesthesiology; PCP Family Medicine; Referring Provider Nurse Practitioner; Visit Provider Internal Medicine Gastroenterology
PROC: 0DJD8ZZ Inspection of Lower Intestinal Tract, Via Natural or Artificial Opening Endoscopic (ICD-10-PCS; CPT 45378; principal; 2024-12-26 11:00)
DX: Z12.11 Encounter for screening for malignant neoplasm of colon (principal); D12.0 Benign neoplasm of cecum; K57.30 Diverticulosis of large intestine without perforation or abscess without bleeding; E66.9 Obesity, unspecified; Z68.35 Body mass index [BMI] 35.0-35.9, adult; Z87.891 Personal history of nicotine dependence; Z83.719 Family history of colon polyps, unspecified; Z80.41 Family history of malignant neoplasm of ovary
CPT/HCPCS: 45385; 88305; J2003; J2704; J7120